=== PATIENT | male | born 1955 | race Asian ===

== ENCOUNTER 2021-07-10 01:23 | Emergency (ER) | payer OTHER ==
[2021-07-10 01:56] VITALS: BP 163/79; PULSE 67; TEMP 98.1; BMI 23.0
[2021-07-10] MEDS ORDERED: ACETAMINOPHEN 325 MG TABLET (FP) PO ONE (02:56)
[2021-07-10] MEDS ORDERED: ACETAMINOPHEN 325 MG TABLET (FP) ONE (03:46)
== END 2021-07-10 04:59 | disposition home or self-care (01) ==
LOC: JER 01:23
DX: S09.90XA Unspecified injury of head, initial encounter (principal); S00.91XA Abrasion of unspecified part of head, initial encounter; W20.8XXA Other cause of strike by thrown, projected or falling object, initial encounter; Y92.9 Unspecified place or not applicable
CPT/HCPCS: 70450-TC; 99284-25